=== PATIENT | female | born 2000 | race American Indian/Alaskan Native ===

== ENCOUNTER 2019-04-10 10:11 | Emergency (ER) | payer SELFPAY ==
[2019-04-10 10:16] VITALS: BP 152/103
--- NOTE | 2019-04-10 11:04 | Emergency Department Report ---
ED Rash HPI - HPI Chief Complaint: Skin Rash Stated Complaint: UROGENITAL FEMALE Time Seen by Provider: 04/10/19 10:34 Duration: 3 Days Location: Other (vulva) Suspected Cause: Unknown Rash Symptoms: Yes Blistering, No Itching, No Facial Swelling, No Tongue/Oral Swelling, No Breathing Difficulties, No Choking Sensation, No Wheezing/Dyspnea, No Peeling, No Fever, No Lightheaded, No Malaise, No Myalgias Severity: moderate Other History: This is a 19-year-old female presents to ED complaining of burning and painful lesions to the vaginal area for the past 3-5 days. Patient states that she noticed it is not going away getting worse. Patient denies any vaginal discharge, painful urination or vaginal bleeding or pelvic pain ED Review of Systems ROS: Stated complaint: UROGENITAL FEMALE Other details as noted in HPI Comment: All other systems reviewed and negative ED Past Medical Hx - Past Medical History Previous Medical History?: Yes Additional medical history: Lupus. Fibrodmyalgia - Surgical History Past Surgical History?: No - Social History Smoking Status: Never Smoker Substance Use Type: None - Medications Home Medications: Home Medications Medication Instructions Recorded Confirmed Last Taken Type Acetaminophen [Acetaminophen TAB] 500 mg PO Q6HR PRN #20 tablet 01/23/19 Unknown Rx 21/Iron Fu/Folic Acid 1 each PO DAILY #30 tablet 01/23/19 Unknown Rx [ Complete Caplet] Acyclovir [Zovirax Tab] 800 mg PO Q8H #21 tab 04/10/19 Unknown Rx Acyclovir [Zovirax] 1 applic TP TID #1 oint...g. 04/10/19 Unknown Rx Rash Exam - Exam General: Vital signs noted. No distress. Alert and acting appropriately. HEENT: No Periorbital Edema, No Conjuctival Injection, No Chemosis, No Perioral Edema, No Tongue Edema, No Uvular Edema, No Compromised Airway, No Drooling Lungs: Yes Good Air Exchange (Normal Breath Sounds), No Wheezes, No Ronchi, No Stridor, No Cough, No Labored Respirations, No Retractions, No Use of Accessory Muscles, No Other Abnormal Lung Sounds Heart: Yes Regular, No Murmur Skin: Yes Bulla(e) (small fluidd filled cyst like nadege vaginal), Yes Tenderness, Yes Erythema, Yes Other (herpertic lesions on inner left vulva lip), No Urticarial Rash, No Maculopapular Rash, No Morbilliform rash, No Excoriations, No Weeping, No Edema, No Encrustations Other: Positive: Abdomen Normal, Neurologic Normal, Musculoskeletal Normal ED Course Vital Signs 04/10/19 10:15 Temperature 98.2 F Pulse Rate 102 H Respiratory 16 Rate Blood Pressure 152/103 O2 Sat by Pulse 99 Oximetry ED Medical Decision Making - Medical Decision Making 19-year-old female presents with follow-up for her pruritic lesions. Discuss treatment with antiviral oral tablets as well as topical. Discussed STDs screening at [facility]. Patient understands all instructions. I explained in detail to patient that there is no cure for herpes but she can treat symptoms. Discussed with patient and her mother always within the wound to avoid intercourse until lesions are clear. Discuss partner notification and testing. Vital signs are normal patient is in no acute distress Critical care attestation.: If time is entered above; I have spent that time in minutes in the direct care of this critically ill patient, excluding procedure time. ED Disposition Clinical Impression: Herpetic ulceration of vulva, Herpes genitalis in women Disposition: - TO HOME OR SELFCARE Is pt being admited?: No Does the pt Need Aspirin: No Condition: Stable Instructions: Genital Herpes Simplex (ED) Additional Instructions: Make sure to follow up with the primary care physician as discussed. Take all your medications as you've been prescribed. If you have any worsening symptoms or develop new symptoms please return to ED immediately. Prescriptions: Acyclovir [Zovirax] 1 applic TP TID #1 oint...g. Acyclovir [Zovirax Tab] 800 mg PO Q8H #21 tab Referrals: PRIMARY CARE, [Primary Care Provider] - 3-5 Days [facility] [Outside] - 3-5 Days [facility] [Outside] - 3-5 Days Forms: Accompanied Note, Work/School Release Form(ED) Time of Disposition: 11:14
== END 2019-04-10 11:27 | disposition home or self-care (01) ==
LOC: ED 10:11
DX: A60.04 Herpesviral vulvovaginitis (principal); M32.9 Systemic lupus erythematosus, unspecified; M79.7 Fibromyalgia; Z79.899 Other long term (current) drug therapy
CPT/HCPCS: 99282

== ENCOUNTER 2021-11-13 18:12 | Emergency (ER) | payer SELFPAY ==
[2021-11-13 20:09] VITALS: BP 124/87
--- NOTE | 2021-11-13 21:47 | Emergency Department Report ---
ED General Adult HPI - General Chief complaint: Pain General Stated complaint: BODY PAIN PUI?: Yes Time Seen by Provider: 11/13/21 21:15 Source: patient Mode of arrival: Ambulatory Limitations: No Limitations - History of Present Illness Initial comments: The patient was evaluated in the emergency department for symptoms described in the history of present illness. He/she was evaluated in the context of the global COVID-19 pandemic, which necessitated consideration that the patient might be at risk for infection with the virus that causes COVID-19. Institutional protocols and algorithms that pertain to the evaluation of patients at risk for COVID-19 are in a state of rapid change based on information released by regulatory bodies including the CDC and federal and state organizations. These policies and algorithms were followed during the patient's care in the emergency department. Please note that these policies, procedures and recommendations changed on a rapid basis. During the entire history and physical examination, I had on complete personal protective equipment. The patient is a 21-year-old female, who has a history of lupus, maintained on chronic prednisone, but otherwise no other chronic medications, who reports that she is not , has not delivered her given within the past 6 weeks, and who is also not COVID-19 vaccinated, presenting to the ER today with complaint of 2 weeks chest wall pain, cough, shortness of breath, body aches, abdominal cramping, loss of taste and smell. Denies urinary symptoms. -: week(s) Location: chest, back, abdomen, left, right, upper extremity, lower extremity Consistency: constant Improves with: rest Worsens with: movement - Related Data Previous Rx's Medication Instructions Recorded Last Taken Type Acetaminophen [Acetaminophen TAB] 500 mg PO Q6HR PRN #20 tablet 01/23/19 Unknown Rx 21/Iron Fu/Folic Acid 1 each PO DAILY #30 tablet 01/23/19 Unknown Rx [ Complete Caplet] Acyclovir [Zovirax Tab] 800 mg PO Q8H #21 tab 04/10/19 Unknown Rx Acyclovir [Zovirax] 1 applic TP TID #1 oint...g. 04/10/19 Unknown Rx Acetaminophen [Non-Aspirin Extra 500 mg PO Q6HR PRN #30 tablet 11/13/21 Unknown Rx Strength] Amoxicillin [Trimox CAP] 1,000 mg PO Q8H #28 capsule 11/13/21 Unknown Rx Azithromycin [Zithromax TAB] 250 mg PO QDAY #4 tablet 11/13/21 Unknown Rx Ibuprofen [Motrin] 600 mg PO Q8H PRN #30 tablet 11/13/21 Unknown Rx Ondansetron [Zofran Odt] 4 mg PO Q8HR PRN #20 tab.rapdis 11/13/21 Unknown Rx Allergies Allergy/AdvReac Type Severity Reaction Status Date / Time No Known Allergies Allergy Verified 01/23/19 06:04 ED Review of Systems ROS: Stated complaint: BODY PAIN Other details as noted in HPI Constitutional: fever, malaise, weakness Eyes: denies: eye discharge ENT: denies: epistaxis Respiratory: cough, shortness of breath Cardiovascular: chest pain Gastrointestinal: abdominal pain Genitourinary: denies: dysuria Musculoskeletal: back pain, arthralgia, myalgia Neurological: weakness ED Past Medical Hx - Past Medical History Previous Medical History?: Yes Additional medical history: Lupus. Fibrodmyalgia - Surgical History Past Surgical History?: No - Social History Smoking Status: Never Smoker Substance Use Type: None - Medications Home Medications: Home Medications Medication Instructions Recorded Confirmed Last Taken Type Acetaminophen [Acetaminophen TAB] 500 mg PO Q6HR PRN #20 tablet 01/23/19 Unknown Rx 21/Iron Fu/Folic Acid 1 each PO DAILY #30 tablet 01/23/19 Unknown Rx [ Complete Caplet] Acyclovir [Zovirax Tab] 800 mg PO Q8H #21 tab 04/10/19 Unknown Rx Acyclovir [Zovirax] 1 applic TP TID #1 oint...g. 04/10/19 Unknown Rx Acetaminophen [Non-Aspirin Extra 500 mg PO Q6HR PRN #30 tablet 11/13/21 Unknown Rx Strength] Amoxicillin [Trimox CAP] 1,000 mg PO Q8H #28 capsule 11/13/21 Unknown Rx Azithromycin [Zithromax TAB] 250 mg PO QDAY #4 tablet 11/13/21 Unknown Rx Ibuprofen [Motrin] 600 mg PO Q8H PRN #30 tablet 11/13/21 Unknown Rx Ondansetron [Zofran Odt] 4 mg PO Q8HR PRN #20 tab.rapdis 11/13/21 Unknown Rx ED Physical Exam - General Limitations: No Limitations General appearance: alert, anxious, in distress - Head Head exam: Present: atraumatic, normocephalic - Eye Eye exam: Present: normal appearance, EOMI. Absent: nystagmus - ENT ENT exam: Present: normal exam, normal orophraynx, mucous membranes dry, normal external ear exam - Neck Neck exam: Present: normal inspection, full ROM. Absent: tenderness, meningismus - Respiratory Respiratory exam: Present: chest wall tenderness, other (Pulmonary auscultation not performed secondary to lack of disposable stethoscope). 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 Absent: distended, tenderness, guarding, rebound, rigid - Extremities Exam Extremities exam: Present: normal inspection, full ROM, other (2+ pulses noted in the bilateral upper and lower extremities. There is no palpable cord. negative Homans sign. Muscular compartments are soft. The pelvis is stable.). Absent: pedal edema, calf tenderness - Back Exam Back exam: Present: normal inspection. Absent: tenderness, CVA tenderness (R), CVA tenderness (L), paraspinal tenderness, vertebral tenderness - Neurological Exam Neurological exam: Present: alert, oriented X3, other (No facial droop. Tongue midline. Extraocular movements intact bilaterally. Facial sensation intact to light touch in V1, V2, V3 distribution bilaterally. 5 and a 5 strength in 4 extremities. Sensation intact to light touch in 4 extremities.). Absent: motor sensory deficit - Psychiatric Psychiatric exam: Present: anxious - Skin Skin exam: Present: warm, dry, intact, normal color. Absent: rash ED Course Vital Signs 11/13/21 11/13/21 11/13/21 18:29 20:08 20:13 Temperature 102.7 F H 99.4 F Pulse Rate 140 H 114 H Respiratory 16 12 Rate Blood Pressure 142/88 124/87 [Left] O2 Sat by Pulse 95 100 Oximetry 11/13/21 11/14/21 23:36 01:50 Temperature Pulse Rate 122 H 101 H Respiratory 12 Rate Blood Pressure [Left] O2 Sat by Pulse 98 Oximetry - Reevaluation(s) Reevaluation #1: 11/14/21 01:38 The patient is reassessed multiple times. She does not desaturate. Heart rate now 105 to 107 bpm. She is receiving liter 4. She tolerated her oral medication. She is suitable for discharge with outpatient follow-up. I did discuss all findings with the patient. I also encouraged the patient's to complete her COVID-19 vaccination series. Reevaluation #2: 11/14/21 05:15 Heart rate 101 at the time of discharge. Marked improvement. ED Medical Decision Making - Lab Data Result diagrams: 11/13/21 22:02 11/13/21 22:02 Vital Signs 11/13/21 11/13/21 11/13/21 18:29 20:08 20:13 Temperature 102.7 F H 99.4 F Pulse Rate 140 H 114 H Respiratory 16 12 Rate Blood Pressure 142/88 124/87 [Left] O2 Sat by Pulse 95 100 Oximetry Lab Results 11/13/21 11/13/21 11/13/21 Range/Units 21:56 22:02 22:02 WBC 5.2 (4.5-11.0) K/mm3 RBC 3.21 L (3.65-5.03) M/mm3 Hgb 8.7 L (10.1-14.3) gm/dl Hct 27.0 L (30.3-42.9) % MCV 84 (79-97) fl MCH 27 L (28-32) pg MCHC 32 (30-34) % RDW 18.1 H (13.2-15.2) % Plt Count 194 (140-440) K/mm3 PT (12.2-14.9) Sec. INR (0.87-1.13) Sodium 127 L (137-145) mmol/L Potassium 4.3 (3.6-5.0) mmol/L Chloride 95.9 L (98-107) mmol/L Carbon Dioxide 20 L (22-30) mmol/L Anion Gap 15 mmol/L BUN 14 (7-17) mg/dL Creatinine 0.9 (0.6-1.2) mg/dL Estimated GFR > 60 ml/min BUN/Creatinine Ratio 16 % Glucose 93 (65-100) mg/dL Calcium 8.4 (8.4-10.2) mg/dL Magnesium 2.10 (1.7-2.3) mg/dL Total Bilirubin 0.60 (0.1-1.2) mg/dL AST 66 H (5-40) units/L ALT 38 (7-56) units/L Alkaline Phosphatase 84 (35-129) units/L Total Creatine Kinase 91 (30-135) units/L Troponin T < 0.010 (0.00-0.029) ng/mL Total Protein 10.1 H (6.3-8.2) g/dL Albumin 3.4 L (3.9-5) g/dL Albumin/Globulin Ratio 0.5 % HCG, Quant (0-4) mIU/mL Urine Color Yellow (Yellow) Urine Turbidity Clear (Clear) Urine pH 7.0 (5.0-7.0) Ur Specific [place] 1.008 (1.003-1.030) Urine Protein 30 mg/dl (Negative) mg/dL Urine Glucose (UA) Neg (Negative) mg/dL Urine Ketones Neg (Negative) mg/dL Urine Blood Sm (Negative) Urine Nitrite Neg (Negative) Urine Bilirubin Neg (Negative) Urine Urobilinogen 2.0 (<2.0) mg/dL Ur Leukocyte Esterase Tr (Negative) Urine WBC (Auto) 6.0 (0.0-6.0) /HPF Urine RBC (Auto) 2.0 (0.0-6.0) /HPF U Epithel Cells (Auto) 1.0 (0-13.0) /HPF Urine Bacteria (Auto) 1+ (Negative) /HPF 11/13/21 11/13/21 Range/Units 22:02 22:02 WBC (4.5-11.0) K/mm3 RBC (3.65-5.03) M/mm3 Hgb (10.1-14.3) gm/dl Hct (30.3-42.9) % MCV (79-97) fl MCH (28-32) pg MCHC (30-34) % RDW (13.2-15.2) % Plt Count (140-440) K/mm3 PT 13.9 (12.2-14.9) Sec. INR 0.97 (0.87-1.13) Sodium (137-145) mmol/L Potassium (3.6-5.0) mmol/L Chloride (98-107) mmol/L Carbon Dioxide (22-30) mmol/L Anion Gap mmol/L BUN (7-17) mg/dL Creatinine (0.6-1.2) mg/dL Estimated GFR ml/min BUN/Creatinine Ratio % Glucose (65-100) mg/dL Calcium (8.4-10.2) mg/dL Magnesium (1.7-2.3) mg/dL Total Bilirubin (0.1-1.2) mg/dL AST (5-40) units/L ALT (7-56) units/L Alkaline Phosphatase (35-129) units/L Total Creatine Kinase (30-135) units/L Troponin T (0.00-0.029) ng/mL Total Protein (6.3-8.2) g/dL Albumin (3.9-5) g/dL Albumin/Globulin Ratio % HCG, Quant < 2 (0-4) mIU/mL Urine Color (Yellow) Urine Turbidity (Clear) Urine pH (5.0-7.0) Ur Specific [place] (1.003-1.030) Urine Protein (Negative) mg/dL Urine Glucose (UA) (Negative) mg/dL Urine Ketones (Negative) mg/dL Urine Blood (Negative) Urine Nitrite (Negative) Urine Bilirubin (Negative) Urine Urobilinogen (<2.0) mg/dL Ur Leukocyte Esterase (Negative) Urine WBC (Auto) (0.0-6.0) /HPF Urine RBC (Auto) (0.0-6.0) /HPF U Epithel Cells (Auto) (0-13.0) /HPF Urine Bacteria (Auto) (Negative) /HPF - EKG Data -: EKG Interpreted by Ia EKG shows normal: sinus rhythm Rate: tachycardia - EKG Data 11/13/21 23:35 The EKG shows evidence of sinus tachycardia, rate 119 bpm. Normal axis, normal P wave axis, QTC 4 6 ms, and poor R wave progression. There is otherwise low voltage. The EKG is not a STEMI. The EKG is interpreted by myself at 21: 37. - Radiology Data Radiology results: pending, report reviewed, image reviewed CHEST 2 VIEWS INDICATION / CLINICAL INFORMATION: chest pain covid symptoms. COMPARISON: None available. FINDINGS: SUPPORT DEVICES: None. HEART / MEDIASTINUM: No significant abnormality. LUNGS / PLEURA: Airspace opacities are seen along the right lower lobe. The lungs are otherwise clear. No significant pleural effusion. No pneumothorax. ADDITIONAL FINDINGS: No significant additional findings. IMPRESSION: Findings concerning for right lower lobe pneumonia. Signer Name: Ruy Badillo MD Signed: 11/13/2021 10:10 PM Workstation Name: [email or web address] - Medical Decision Making Differential diagnosis, including but not limited to: Costochondritis, pneumonia, COVID-19, viral syndrome Assessment and plan: 21-year-old female, presenting with 2 weeks of prototypical COVID-19 symptoms, in the context of a COVID-19 resurgence, while not being va ccinated. Her typical symptoms include body aches, malaise, fatigue, loss of taste and smell. We appreciate the patient's initial fever and tachycardia. However she is not hypoxic, and was given a trial of ambulation for 5 minutes, and did not desaturate. Mild normocytic anemia reviewed and appreciated, mild hyponatremia likely secondary to hypovolemic hyponatremia, likely secondary to viral syndrome/suspected COVID-19. EKG not consistent with STEMI. Given negative troponin, normal CK, I do not suspect myocardial infarction or pericarditis/myocarditis. X-ray of the chest reviewed and appreciated, I am very underwhelmed with x-ray itself, I do not have a high suspicion for pneumonia. Nevertheless, we will cover with amoxicillin and azithromycin. Urinalysis not consistent with UTI. Patient observed in the ER for hours without clinical decompensation However, she is still persistently tachycardic, with a heart rate of 122 bpm. Continue resuscitation and fluids. Plan to discharge when tachycardia improves. Cover with amoxicillin, azithromycin, order additional fluids, and Toradol, and reassess. Critical Care Time: Yes Critical care time in (mins) excluding proc time.: 35 Critical care attestation.: If time is entered above; I have spent that time in minutes in the direct care of this critically ill patient, excluding procedure time. ED Disposition Clinical Impression: Acute febrile illness, Suspected COVID-19 virus infection, COVID-19 vaccination not done, Dehydration Disposition: 01 HOME / SELF CARE / HOMELESS Is pt being admited?: No Does the pt Need Aspirin: No Condition: Good Instructions: COVID-19 Additional Instructions: As we discussed, the patient most likely has novel coronavirus/COVID. the symptoms of COVID will typically persist 10 to 14 days, but may last for days, weeks, or even months. There is no cure at this time for COVID. Please make certain to self isolate and self quarantine, follow-up with an outpatient primary care doctor within the next 3 to 5 days, wash hands with soap and water frequently, thoroughly and often, patient may take the prescribed medications as needed and directed. Advance diet and drink plenty of fluids as tolerated. Avoid interactions with the very elderly, very young, and those with chronic medical conditions. Return to the emergency room right away with new pain, worsening pain, migration of pain, projectile vomiting, change in mental status, confusion, inability to tolerate liquid feeds, new, worsened or different symptoms not present on the initial emergency room evaluation. Recommend follow-up with a primary care provider within the next 10 to 14 days Also strongly recommend the patient complete COVID-19 vaccination series when she is no longer symptomatic, to prevent recurrence of serious disease. Please return to the emergency room right away with new pain, worsened pain, migration of pain, projectile vomiting, change in mental status, confusion, inability tolerate liquid feeds, new, worsened or different symptoms not present on the initial emergency room evaluation Prescriptions: Ibuprofen [Motrin] 600 mg PO Q8H PRN #30 tablet PRN Reason: Pain Acetaminophen [Non-Aspirin Extra Strength] 500 mg PO Q6HR PRN #30 tablet PRN Reason: Pain , Severe (7-10) Amoxicillin [Trimox CAP] 1,000 mg PO Q8H #28 capsule Azithromycin [Zithromax TAB] 250 mg PO QDAY #4 tablet Ondansetron [Zofran Odt] 4 mg PO Q8HR PRN #20 tab.rapdis PRN Reason: Nausea Referrals: BUFFY TEE MD [Primary Care Provider] - 3-5 Days [facility] [Provider Group] - 3-5 Days [facility] [Outside] - 3-5 Days Forms: Work/School Release Form(ED)
[2021-11-13] MEDS: ONDANSETRON 4 MG/2 ML INJ IV ONE (22:02)
[2021-11-13] MEDS: ACETAMINOPHEN 500 MG TAB PO ONE (22:02)
[2021-11-13] MEDS: SODIUM CHLORIDE 0.9% 1000 ML 2,000 ML IV ONE (22:03)
[2021-11-13 22:17] LABS: Bacteria,Urine 1+ /HPF (Negative); Bilirubin,Urine NEG (Negative); Blood,Urine SM (Negative); Color,Urine Yellow (Yellow)
[2021-11-13 22:25] LABS: Hemoglobin 8.7 gm/dl (10.1-14.3); Mean Corpuscular HGB Conc 32 % (30-34); Mean Corpuscular Volume 84 fl (79-97); Platelet Count 194 K/mm3 (140-440); Red Blood Count 3.21 M/mm3 (3.65-5.03); Red Cell Distribution Width 18.1 % (13.2-15.2)
[2021-11-13 22:38] LABS: Alanine Aminotransferase 38 units/L (7-56); Albumin 3.4 g/dL (3.9-5); BUN/Creatinine Ratio 16; Blood Urea Nitrogen 14 mg/dL (7-17); Calcium 8.4 mg/dL (8.4-10.2); Hemolysis Index 7
[2021-11-13 22:44] LABS: INR 0.97 (0.87-1.13)
--- NOTE | 2021-11-13 23:15 | XRay Report ---
CHEST 2 VIEWS INDICATION / CLINICAL INFORMATION: chest pain covid symptoms. COMPARISON: None available. FINDINGS: SUPPORT DEVICES: None. HEART / MEDIASTINUM: No significant abnormality. LUNGS / PLEURA: Airspace opacities are seen along the right lower lobe. The lungs are otherwise clear . No significant pleural effusion. No pneumothorax. ADDITIONAL FINDINGS: No significant additional findings. IMPRESSION: Findings concerning for right lower lobe pneumonia. Signer Name: Ruy Badillo MD Signed: 11/13/2021 11:10 PM Workstation Name: [id number]
[2021-11-13] MEDS: AMOXICILLIN 500 MG CAP PO ONE (23:55)
[2021-11-13] MEDS: SODIUM CHLORIDE 0.9% 1000 ML 1,000 ML IV ONE (23:55)
[2021-11-13] MEDS: AZITHROMYCIN/NS 500 MG/250 ML 500 MG/250 ML BAG IV ONE (23:56)
[2021-11-13] MEDS: KETOROLAC 30 MG/1 ML INJ IV ONE (23:56)
[2021-11-14] MEDS: SODIUM CHLORIDE 0.9% 1000 ML 1,000 ML IV ONE (01:12)
[2021-11-14 02:10] LABS: Anisocytosis 1+; Basophils % (Manual) 0 % (0.0-1.8); Eosinophils % (Manual) 0 % (0.0-4.3); Total Cells Counted 100
[2021-11-14 02:11] LABS: Platelet Estimate Consistent w Auto
--- NOTE | 2021-11-14 18:17 | Electrocardiograph Report ---
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
== END 2021-11-14 02:17 | disposition home or self-care (01) ==
LOC: ED 18:12
DX: R50.9 Fever, unspecified (principal); Z20.822 Contact with and (suspected) exposure to COVID-19; E86.0 Dehydration; Z79.899 Other long term (current) drug therapy
CPT/HCPCS: 36415; 71046; 80053; 81001; 82550; 83735; 84484; 84702; 85007; 85025; 85610; 93005; 96361; 96365; 96375; 99291; J0456; J1885; J2405; J7030; 99284